=== PATIENT | male | born 1960 | race Caucasian/White ===

== ENCOUNTER 2023-09-22 09:33 | Outpatient (OUT) | payer OTHER, SELFPAY ==
--- NOTE | 2023-09-22 09:40 | XR_ITS ---
The [address] [address] Patient Name: NOEL DAUGHERTY MRN: [id number] date: 1960 Sex: M Assigned Patient Location: [facility] Current Patient Location: [facility] Accession/Order Number: [id number] Exam Date: 09/22/2023 09:46 Report Date: 09/22/2023 10:08 At the request of: RAMANDEEP JOHNSON Procedure: XR knee LT 4V PROCEDURE: XR knee LT 4V COMPARISON: None. HISTORY: Left Knee Sprain FINDINGS: BONES:No acute fracture or dislocation. Moderate tricompartmental osteoarthropathy with joint space narrowing and marginal osteophyte formation most significant in the medial compartment. SOFT TISSUES:Negative. No visible soft tissue swelling. EFFUSION:Moderate suprapatellar joint effusion OTHER: Negative. XR/XR knee LT 4V IMPRESSION: Moderate osteoarthritis Moderate joint effusion Electronically authenticated by: ZACH HOPKINS Date: 09/22/2023 10:08
== END 2023-09-22 09:34 | disposition home or self-care (01) ==
LOC: RAD 09:36
PROVIDERS: Family Provider Internal Medicine; PCP Internal Medicine; Visit Provider Nurse Practitioner Family
DX: S83.92XA Sprain of unspecified site of left knee, initial encounter (principal); M17.12 Unilateral primary osteoarthritis, left knee; M25.462 Effusion, left knee
CPT/HCPCS: 73564

== ENCOUNTER 2023-09-28 15:21 | Outpatient (OUT) | payer OTHER, SELFPAY ==
--- NOTE | 2023-09-28 15:24 | MR_ITS ---
[address] [address] Patient Name: NOEL DAUGHERTY MRN: [id number] date: 1960 Sex: M Assigned Patient Location: MRI Current Patient Location: Accession/Order Number: [id number] Exam Date: 09/28/2023 15:35 Report Date: 09/29/2023 08:38 At the request of: RAMANDEEP JOHNSON Procedure: MR knee LT wo con EXAMINATION: MR knee LT wo con HISTORY: Left knee injury, sprain S83.92XA COMPARISON: XR knee left 09/22/2023 TECHNIQUE: A complete multi-planar MRI was performed. FINDINGS: MEDIAL COMPARTMENT MEDIAL MENISCUS: Oblique tear extending into the superior surface of the posterior horn. Extrusion of the body of the meniscus from the joint space. CARTILAGE: Marked thinning without focal tear or defect. BONES: Degenerative osteophytes along the outer margin of the joint space. No fracture or subchondral edema. MCL AND MEDIAL CAPSULE: Grade I sprain of the medial collateral ligament. LATERAL COMPARTMENT LATERAL MENISCUS: No visible tear or significant degeneration. CARTILAGE: No visible defect. BONES: Small degenerative osteophytes along the outer margin. LCL/POSTEROLAT COMPLEX: Normal lateral collateral ligament, fascicles, lateral capsule and ligaments. ANTERIOR COMPARTMENT PATELLA: 7 mm crescentic shaped area of increased T2 signal within the lateral patellar facet, mid body. CARTILAGE: No visible defect or significant thinning. TENDONS: Normal. EFFUSION: Small to moderate joint effusion. ACL: Normal appearing ligament. PCL: Normal appearing ligament. MENISCOFEMORAL: Normal meniscofemoral ligaments. OTHER: Negative. MR/MR knee LT wo con IMPRESSION: 1. Subchondral edema within lateral patellar facet without visible overlying cartilage defect or significant thinning; occult cartilage tear versus bone bruising. 2. Medial meniscus posterior horn superior surface tear, and extrusion of the body of the meniscus from the joint space. 3. Medial joint space and marked cartilage thinning. 4. Small moderate periarticular degenerative osteophytes involving the medial and lateral compartments. Electronically authenticated by: SHYANN HAY Date: 09/29/2023 08:38
== END 2023-09-28 15:22 | disposition home or self-care (01) ==
LOC: MRI 15:21
PROVIDERS: Family Provider Internal Medicine; PCP Internal Medicine; Visit Provider Nurse Practitioner Family
DX: S83.92XA Sprain of unspecified site of left knee, initial encounter (principal); S83.242A Other tear of medial meniscus, current injury, left knee, initial encounter
CPT/HCPCS: 73721